=== PATIENT | female | born 1960 | race Caucasian/White ===

== ENCOUNTER 2016-05-07 21:10 | Emergency (ER) | payer OTHER ==
[2010-06-19 06:23] VITALS: BMI 34.8
== END 2016-05-07 22:20 | disposition left against medical advice (07) ==
LOC: D.ER 21:10
DX: M54.9 Dorsalgia, unspecified (principal); I10 Essential (primary) hypertension; E78.5 Hyperlipidemia, unspecified

== ENCOUNTER 2017-09-28 20:19 | Emergency (ER) | payer OTHER ==
[~2017-09-28] VITALS: Ht 157.5 cm; Wt 75.0 kg
[2017-09-28 20:25] VITALS: BP 113/71; Ht 157.5 cm; Wt 75.0 kg
[2017-09-28] MEDS ORDERED: COZAAR100 MG PO (20:26)
[2017-09-28] MEDS ORDERED: NORVASC5 MG PO (20:27)
[2017-09-28] MEDS ORDERED: ADIPEX-P37.5 MG PO (20:27)
[2017-09-28] MEDS ORDERED: TOPAMAX50 MG PO (20:27)
[2017-09-28] MEDS ORDERED: LEXAPRO20 MG PO (20:27)
[2017-09-28] MEDS ORDERED: HYDROCODONE-APA1 TAB PO (20:28)
== END 2017-09-28 23:05 | disposition left against medical advice (07) ==
LOC: D.ER 20:19
DX: M79.641 Pain in right hand (principal)

== ENCOUNTER → 2017-10-29 09:42 | Outpatient (CLI) | payer OTHER ==
[2017-09-28 20:25] VITALS: BMI 30.2
[~2017-10-29 09:42] MED LIST: ADIPEX-P37.5 MG PO; COZAAR100 MG PO; HYDROCODONE-APA1 TAB PO; LEXAPRO20 MG PO; NORVASC5 MG PO; TOPAMAX50 MG PO
== END | disposition home or self-care (01) ==
LOC: D.MRI 09:42
DX: R20.2 Paresthesia of skin (principal)

== ENCOUNTER → 2018-07-01 09:32 | Outpatient (CLI) | payer OTHER ==
[2017-09-28 20:25] VITALS: BMI 30.2
--- NOTE | 2018-07-06 14:39 | ST ---
PATIENT:RICHARD ODOM MEDICAL RECORD: [id number] SEX: F LOCATION:[facility] ORDER #: ADMISSION DATE: 07/01/18 AGE OF PATIENT: 58 REFERRING PHYSICIAN: INTERPRETING PHYSICIAN: ERICK SHELTON MD DATE OF SERVICE: 07/01/2018 PROCEDURE: Nuclear stress test. INDICATION: Chest pain compatible with angina, hypertension, shortness of breath. She was exercised on standard Lexiscan protocol with 32 mCi of sestamibi injected at peak stress, 11 mCi used previously for rest images. FINDINGS: Gated SPECT reveals preserved ejection fraction at 81% with good wall motion and thickening and brightening throughout all segments. SPECT imaging Cardiolite was used as myocardial fusion agent. There is homogeneous uptake throughout all segments at rest and stress with no evidence of inducible ischemia or previous infarction. OVERALL IMPRESSION: 1. This is a normal nuclear stress test with no evidence of inducible ischemia or previous infarction. 2. Gated SPECT reveals a preserved ejection fraction at 81%. In this patient with ongoing symptomatology, the current scan does not suggest the presence of hemodynamically significant coronary artery disease. Evaluate noncardiac etiology of chest pain. TRANSINT:[id number] Voice Confirmation ID: [id number] DOCUMENT ID: [id number] ERICK SHELTON MD at 1439 CC: TIFF HAMEED MD [id number] DICTATION DATE: 07/01/181912 PROOFER BLACK AND WHITE: 07/02/18 1359 DEP CLI 07/01/18 [facility] [address] [place] [address]
== END | disposition home or self-care (01) ==
LOC: D.HCCARDIO 09:32
PROVIDERS: ATTEND Internal Medicine Interventional Cardiology
DX: I20.9 Angina pectoris, unspecified (principal)

== ENCOUNTER → 2019-01-25 09:11 | Outpatient (CLI) | payer OTHER ==
[2017-09-28 20:25] VITALS: BMI 30.2
== END | disposition home or self-care (01) ==
LOC: D.CT 09:11
PROVIDERS: ATTEND Student in an Organized Health Care Education/Training Program
DX: R19.00 Intra-abdominal and pelvic swelling, mass and lump, unspecified site (principal)